=== PATIENT | female | born 1975 | race Caucasian/White ===

== ENCOUNTER 2018-04-23 14:39 | Emergency (ER) | payer SELFPAY ==
[~2018-04-23] VITALS: Ht 157.5 cm; Wt 95.0 kg
[2018-04-23 14:54] VITALS: BP 162/136
--- NOTE | 2018-04-23 15:00 | NUR ---
PT. ARRIVES BY [facility] WITH C/O RIGHT KNEE PAIN. UPON ARRIVAL TO THE ER THE PT. IS SCREAMING AT EMS AND FLIPPING THEM OFF, SCREAMING AT THE ER STAFF AND HER 3 CHILDREN. PT. WILL NOT REMOVE HER JACKET TO OBTAIN A BP. PT. IS ROLLING ALL OVER THE STRETCHER AND UNCOOPERATIVE. RESOLUTION REP-CORNELIUS IS AT THE BEDSIDE. PT. IS SCREAMING AT [facility]. PT. WAS REDIRECTED. MELI MONTGOMERY INSTRUCTED THE PT. TO REMOVE HER JACKET. VITALS OBTAINED. PT.'S 3 CHILDREN STATE SHE "ALWAYS SCREAMS". EMS REPORTED THAT THEY ASKED THE CHILDREN IF THEY FELT SAFE AND THEY STATED YES. CMS CHECKS ARE INTACT TO THE RIGHT KNEE. SIDERAILS ARE UP X [address] WITH THE CALL LIGHT IN PLACE. REPORT GIVEN TO SHELLIE GARRISON.
== END 2018-04-23 16:30 | disposition home or self-care (01) ==
LOC: ED 15:00
DX: S83.91XA Sprain of unspecified site of right knee, initial encounter (principal); E11.9 Type 2 diabetes mellitus without complications; W19.XXXA Unspecified fall, initial encounter; Y93.89 Activity, other specified; Y92.89 Other specified places as the place of occurrence of the external cause; Y99.8 Other external cause status
CPT/HCPCS: 29505; 99283

== ENCOUNTER 2019-03-11 11:56 | Inpatient (IN) | payer OTHER ==
[~2019-03-11] VITALS: Ht 165.1 cm; Wt 86.0 kg
--- NOTE | 2019-03-11 13:08 | NUR ---
BREAK RN: RECEIVED A CALL FROM SPOUSE, HE STATES PATIENT IS TAKING DEPAKOTE, NO KEPRA FOR SEIZURES. HE WILL BE IN SOON TO SEE PATIENT
[2019-03-11] MEDS ORDERED: LORazepam 2 MG/ML, 1ML ONE (13:16)
--- NOTE | 2019-03-11 13:17 | NUR ---
BREAK RN: PT HAD GRANDMAL SEIZURE X 30 SEC. MD NOTIFIED ORDERS RECEIVED. SEIZURE PADS PLACED ON BED.
[2019-03-11] MEDS ORDERED: SODIUM CHLORIDE FLUSH 10ML SYR IVF ONE (13:30)
[2019-03-11] MEDS ORDERED: LORazepam 2 MG/ML, 1ML IVPush ONE (13:30)
[2019-03-11 13:35] LABS: BASOPHILS # (AUTO) 0.02 x10^3/uL (0-0.1); BASOPHILS % (AUTO) 0 % (0-1); EOSINOPHILS # (AUTO) 0.09 x10^3/uL (0-0.4); EOSINOPHILS % (AUTO) 1 % (1-7); LYMPHOCYTES # (AUTO) 2.13 x10^3/uL (1-3.4); LYMPHOCYTES % (AUTO) 26 % (22-44); MD NO; MEAN CORPUSCULAR HEMOGLOBIN 33.1 pg (27.0-34.8); MEAN CORPUSCULAR HGB CONC 33.6 g/dL (32.4-35.8); MEAN CORPUSCULAR VOLUME 98.5 fL (80-100); MONOCYTES % (AUTO) 6 % (2-9); NEUTROPHILS # (AUTO) 5.36 x10^3/uL (1.8-6.8); NEUTROPHILS % (AUTO) 66 % (42-75); PLATELET COUNT 200 x10^3/uL (130-400); RED BLOOD COUNT 4.37 x10^6/uL (3.82-5.3); RED CELL DISTRIBUTION WIDTH 13.5 % (9.6-15.2)
--- NOTE | 2019-03-11 13:48 | NUR ---
ASSUMED CARE OF PATIENT. REPORT GIVEN FROM MELI GOODSON. PT IS AT CT.
--- NOTE | 2019-03-11 13:49 | NUR ---
PT TO CT VIA [employer] MADE AWARE PT HAD SEIZURE AND RECEIVED MED FOR SAME. REPORT TO DAVID GARRISON
--- NOTE | 2019-03-11 14:12 | NUR ---
PT BACK FROM CT AND RESTING IN ROOM. VS STABLE. ASSEMBLER SKYLIGHTS ON. CALL LIGHT IN PLACE. WILL CONTINUE TO MONITOR.
[2019-03-11 14:20] LABS: ALBUMIN 3.6 g/dL (3.4-5.0); ANION GAP 2 mmol/L (5-15); CALCIUM 8.6 mg/dL (8.5-10.1); CHLORIDE 110 mmol/L (98-107); CREATININE 0.81 mg/dL (0.55-1.02)
[2019-03-11] MEDS ORDERED: LIRAGLUTIDE (14:34)
[2019-03-11] MEDS ORDERED: METF500T17 PO (14:34)
[2019-03-11] MEDS ORDERED: KEPPRA (14:35)
[2019-03-11] MEDS ORDERED: SIMVASTATIN PO (14:36)
--- NOTE | 2019-03-11 14:55 | NUR ---
DR JUAREZ HAS UPDATED PATIENT. PATIENT TO BE AN ADMIT.
[2019-03-11] MEDS ORDERED: LEVETIRACETAM 500 MG in SODIUM CHLORIDE 0.9% 100 ML IV ONE (15:00)
--- NOTE | 2019-03-11 15:05 | NUR ---
PT WENT TO CT
[2019-03-11] MEDS ORDERED: KLONOPIN PO (15:19)
[2019-03-11] MEDS ORDERED: LISINOPRIL (15:20)
--- NOTE | 2019-03-11 15:20 | NUR ---
HOSPITALIST IN ROOM
--- NOTE | 2019-03-11 15:21 | NUR ---
PT DOES NOT KNOW THE DOSAGES OF HER MEDICATIONS. PT SAYS SHE DOES TAKE KEPPRA. HOSPITALIST AWARE, DR JUAREZ AWARE.
--- NOTE | 2019-03-11 15:25 | NUR ---
HOSPITALIST IN ROOM
--- NOTE | 2019-03-11 15:45 | NUR ---
REPORT CALLED INTO TELE 2 RN.
[2019-03-11 16:01] VITALS: BP 108/74
[2019-03-11] MEDS ORDERED: KETOROLAC 30 MG/1 ML IV PRN (16:30)
[2019-03-11] MEDS ORDERED: HYDROmorphone 2 MG/ML, 1ML IVPush PRN (16:30)
[2019-03-11] MEDS ORDERED: hydrALAzine 20 MG/ML, 1ML IVPush PRN (16:30)
[2019-03-11] MEDS ORDERED: ASA/APAP/ CAFFEINE TABLET PO PRN (16:30)
[2019-03-11] MEDS ORDERED: CYCLOBENZAPRINE 10 MG TABLET PO PRN (16:30)
[2019-03-11] MEDS ORDERED: BUTALB/APAP/CAFFEINE 50MG/325MG/40MG PO PRN (16:30)
[2019-03-11] MEDS ORDERED: TRAZODONE 50MG TABLET PO PRN (16:30)
[2019-03-11] MEDS ORDERED: GUAIFENESIN/DM 200-20MG, 10ML UDC PO PRN (16:30)
[2019-03-11] MEDS ORDERED: POLYETHYLENE GLYCOL 17 GM PACKET PO PRN (16:30)
[2019-03-11] MEDS ORDERED: CLON0.5T11 PO (16:38)
[2019-03-11] MEDS ORDERED: DIVA250T PO (16:38)
[2019-03-11] MEDS ORDERED: RISP2TAB3 PO (16:38)
[2019-03-11] MEDS ORDERED: SIMV5TAB14 PO (16:38)
[2019-03-11] MEDS ORDERED: LISI5TAB7 PO (16:38)
[2019-03-11] MEDS ORDERED: LIRA0.6P SQ (16:40)
[2019-03-11 19:32] VITALS: BP 102/68
[2019-03-11 20:07] LABS: MICROSCOPIC NOT IND
[2019-03-11] MEDS: SIMVASTATIN 5 MG TABLET PO SCH (20:09)
[2019-03-11 20:11] LABS: CULTURE INDICATED? NO
[2019-03-11] MEDS: DIVALPROEX 250 MG TAB.ER.24H PO SCH (20:11)
[2019-03-11] MEDS ORDERED: metFORMIN 500 MG TABLET PO SCH (21:00)
[2019-03-11 21:03] LABS: AMPHETAMINE SCREEN, URINE Negative (Negative); BARBITURATE SCREEN, URINE Negative (Negative); BENZODIAZEPINE SCREEN, URINE Negative (Negative); CANNABINOID SCREEN, URINE Negative (Negative); COCAINE SCREEN, URINE Negative (Negative); METHADONE SCREEN, URINE Negative (Negative); OPIATE SCREEN, URINE Negative (Negative)
[2019-03-12 01:15] VITALS: BP 107/71
[2019-03-12 05:27] LABS: BASOPHILS # (AUTO) 0.03 x10^3/uL (0-0.1); BASOPHILS % (AUTO) 0 % (0-1); EOSINOPHILS # (AUTO) 0.09 x10^3/uL (0-0.4); EOSINOPHILS % (AUTO) 1 % (1-7); LYMPHOCYTES # (AUTO) 2.56 x10^3/uL (1-3.4); LYMPHOCYTES % (AUTO) 32 % (22-44); MD NO; MEAN CORPUSCULAR HEMOGLOBIN 32.7 pg (27.0-34.8); MEAN CORPUSCULAR HGB CONC 33.3 g/dL (32.4-35.8); MEAN PLATELET VOLUME 8.4 fL (7.4-10.4); MONOCYTES # (AUTO) 0.68 x10^3/uL (0.2-0.8); MONOCYTES % (AUTO) 8 % (2-9); NEUTROPHILS # (AUTO) 4.71 x10^3/uL (1.8-6.8); NEUTROPHILS % (AUTO) 58 % (42-75); PLATELET COUNT 198 x10^3/uL (130-400); RED BLOOD COUNT 4.23 x10^6/uL (3.82-5.3); RED CELL DISTRIBUTION WIDTH 13.2 % (9.6-15.2)
[2019-03-12 05:33] LABS: ANION GAP 6 mmol/L (5-15); CALCIUM 8.6 mg/dL (8.5-10.1); CHLORIDE 107 mmol/L (98-107); CREATININE 0.77 mg/dL (0.55-1.02)
[2019-03-12 07:29] VITALS: BP 110/69
[2019-03-12] MEDS: DIVALPROEX 250 MG TAB.ER.24H PO SCH ×2 (09:00→21:00)
[2019-03-12] MEDS: RISPERIDONE 2 MG TABLET PO SCH (09:09)
[2019-03-12] MEDS: LISINOPRIL 5 MG TABLET PO SCH (09:09)
[2019-03-12] MEDS: INSULIN LISPRO 100 UNITS/ML, PEN SQ-INSULIN SCH ×3 (12:41→21:44)
[2019-03-12 15:05] VITALS: BP 94/58
[2019-03-12] MEDS ORDERED: GADOTERATE 10 MMOL/20 ML SYR ONE (17:49)
[2019-03-12 19:54] VITALS: BP 105/71
[2019-03-12] MEDS: SIMVASTATIN 5 MG TABLET PO SCH (21:44)
[2019-03-13 00:48] VITALS: BP 106/65
[2019-03-13 08:03] VITALS: BP 96/70
[2019-03-13] MEDS: INSULIN LISPRO 100 UNITS/ML, PEN SQ-INSULIN SCH ×4 (08:27→20:33)
[2019-03-13 09:30] VITALS: BP 102/69
[2019-03-13] MEDS: RISPERIDONE 2 MG TABLET PO SCH (09:32)
[2019-03-13] MEDS: LISINOPRIL 5 MG TABLET PO SCH (09:32)
[2019-03-13] MEDS: DIAZEPAM 5 MG TABLET PO SCH ×3 (11:09→20:33)
[2019-03-13] MEDS: DIVALPROEX 250 MG TAB.ER.24H PO SCH ×2 (11:09→20:33)
[2019-03-13 12:36] VITALS: BP 116/79
[2019-03-13 18:54] VITALS: BP 106/71
[2019-03-13] MEDS: SIMVASTATIN 5 MG TABLET PO SCH (20:33)
[2019-03-14 01:30] VITALS: BP 103/67
[2019-03-14] MEDS: INSULIN LISPRO 100 UNITS/ML, PEN SQ-INSULIN SCH ×2 (07:00→12:11)
[2019-03-14 07:58] VITALS: BP 115/79
[2019-03-14] MEDS: RISPERIDONE 2 MG TABLET PO SCH (09:45)
[2019-03-14] MEDS: DIVALPROEX 250 MG TAB.ER.24H PO SCH ×2 (09:45→20:41)
[2019-03-14] MEDS: LISINOPRIL 5 MG TABLET PO SCH (09:45)
[2019-03-14] MEDS: DIAZEPAM 5 MG TABLET PO SCH ×3 (09:45→20:41)
[2019-03-14 13:07] VITALS: BP 108/70
[2019-03-14] MEDS: SIMVASTATIN 5 MG TABLET PO SCH (20:41)
[2019-03-14 20:45] VITALS: BP 96/61
[2019-03-15 01:07] VITALS: BP 99/63
[2019-03-15 07:45] VITALS: BP 123/82
[2019-03-15] MEDS: LISINOPRIL 5 MG TABLET PO SCH (10:32)
[2019-03-15] MEDS: DIAZEPAM 5 MG TABLET PO SCH ×3 (10:32→20:26)
[2019-03-15] MEDS: RISPERIDONE 2 MG TABLET PO SCH (10:33)
[2019-03-15] MEDS: DIVALPROEX 250 MG TAB.ER.24H PO SCH ×2 (10:34→20:26)
[2019-03-15 13:13] VITALS: BP 115/73
[2019-03-15 20:12] VITALS: BP 96/62
[2019-03-15] MEDS: SIMVASTATIN 5 MG TABLET PO SCH (20:26)
[2019-03-16 01:48] VITALS: BP 91/57
[2019-03-16 06:58] VITALS: BP 97/64
[2019-03-16] MEDS: DIAZEPAM 5 MG TABLET PO SCH ×3 (09:01→20:04)
[2019-03-16] MEDS: ENOXAPARIN 40 MG/0.4 ML SQ SCH (09:01)
[2019-03-16] MEDS: RISPERIDONE 2 MG TABLET PO SCH (09:01)
[2019-03-16] MEDS: DIVALPROEX 250 MG TAB.ER.24H PO SCH ×2 (09:01→20:04)
[2019-03-16 13:45] VITALS: BP 107/71
[2019-03-16] MEDS: SIMVASTATIN 5 MG TABLET PO SCH (20:04)
[2019-03-16 20:41] VITALS: BP 117/76
[2019-03-16 22:26] VITALS: BP 98/66
[2019-03-17 01:11] VITALS: BP 105/64
[2019-03-17 06:41] VITALS: BP 110/70
[2019-03-17] MEDS: DIVALPROEX 250 MG TAB.ER.24H PO SCH ×2 (09:31→20:05)
[2019-03-17] MEDS: ENOXAPARIN 40 MG/0.4 ML SQ SCH (09:31)
[2019-03-17] MEDS: RISPERIDONE 2 MG TABLET PO SCH (09:32)
[2019-03-17] MEDS: DIAZEPAM 5 MG TABLET PO SCH ×3 (09:38→20:04)
[2019-03-17 13:18] VITALS: BP 120/79
[2019-03-17 18:57] VITALS: BP 117/72
[2019-03-17] MEDS: SIMVASTATIN 5 MG TABLET PO SCH (20:04)
[2019-03-17 20:11] VITALS: BP 133/89
[2019-03-18 01:06] VITALS: BP 102/65
[2019-03-18] MEDS: ACETAMINOPHEN 325 MG TABLET PO PRN (01:55)
[2019-03-18 05:51] LABS: CREATININE 0.81 mg/dL (0.55-1.02)
[2019-03-18 06:52] VITALS: BP 107/66
[2019-03-18] MEDS: DIVALPROEX 250 MG TAB.ER.24H PO SCH ×2 (09:36→19:36)
[2019-03-18] MEDS: DIAZEPAM 5 MG TABLET PO SCH ×3 (09:36→19:37)
[2019-03-18] MEDS: ENOXAPARIN 40 MG/0.4 ML SQ SCH (09:36)
[2019-03-18] MEDS: RISPERIDONE 2 MG TABLET PO SCH (09:36)
[2019-03-18 12:42] VITALS: BP 125/82
[2019-03-18] MEDS: SIMVASTATIN 5 MG TABLET PO SCH (19:36)
[2019-03-18 19:46] VITALS: BP 119/77
[2019-03-19] VITALS (7 sets, daily range): BP systolic 91–139; BP diastolic 61–89
[2019-03-19 05:01] LABS: BASOPHILS # (AUTO) 0.03 x10^3/uL (0-0.1); BASOPHILS % (AUTO) 0 % (0-1); EOSINOPHILS # (AUTO) 0.17 x10^3/uL (0-0.4); EOSINOPHILS % (AUTO) 3 % (1-7); LYMPHOCYTES # (AUTO) 2.45 x10^3/uL (1-3.4); LYMPHOCYTES % (AUTO) 36 % (22-44); MD NO; MEAN CORPUSCULAR HEMOGLOBIN 32.7 pg (27.0-34.8); MEAN CORPUSCULAR HGB CONC 33.7 g/dL (32.4-35.8); MEAN PLATELET VOLUME 8.1 fL (7.4-10.4); MONOCYTES # (AUTO) 0.51 x10^3/uL (0.2-0.8); MONOCYTES % (AUTO) 8 % (2-9); NEUTROPHILS % (AUTO) 53 % (42-75); PLATELET COUNT 162 x10^3/uL (130-400); RED BLOOD COUNT 4.18 x10^6/uL (3.82-5.3); RED CELL DISTRIBUTION WIDTH 13.3 % (9.6-15.2)
[2019-03-19 05:09] LABS: ANION GAP 7 mmol/L (5-15); CALCIUM 8.7 mg/dL (8.5-10.1); CHLORIDE 105 mmol/L (98-107); CREATININE 0.94 mg/dL (0.55-1.02)
[2019-03-19] MEDS: DIAZEPAM 5 MG TABLET PO SCH ×3 (09:25→20:24)
[2019-03-19] MEDS: DIVALPROEX 250 MG TAB.ER.24H PO SCH ×2 (09:25→20:24)
[2019-03-19] MEDS: RISPERIDONE 2 MG TABLET PO SCH (09:25)
[2019-03-19] MEDS: ENOXAPARIN 40 MG/0.4 ML SQ SCH (09:29)
[2019-03-19] MEDS: SODIUM CHLORIDE 0.9% 1,000 ML IV SCH ×2 (12:30→22:12)
[2019-03-19 12:55] LABS: HCT (SEDRATE) 43.7 % (34.6-47.8)
[2019-03-19 13:18] LABS: ALANINE AMINOTRANSFERASE 19 U/L (12-78); ALBUMIN 3.5 g/dL (3.4-5.0); ALKALINE PHOSPHATASE 89 U/L (45-117); BILIRUBIN,TOTAL 0.3 mg/dL (0.2-1.0); C-REACTIVE PROTEIN, QUANT 0.04 mg/dL (0.02-0.49); CREATINE KINASE, TOTAL 48 U/L (26-192); TOTAL PROTEIN 7.5 g/dL (6.4-8.2)
[2019-03-19 13:35] LABS: BILIRUBIN, DIRECT < 0.1 mg/dL (0.1-0.2); BILIRUBIN,INDIRECT 0.2 mg/dL (0.0-2.0)
[2019-03-19] MEDS ORDERED: GLUCAGON 1 MG IM PRN (16:00)
[2019-03-19] MEDS ORDERED: DEXTROSE 4 GM TAB.CHEW PO PRN (16:00)
[2019-03-19] MEDS ORDERED: DEXTROSE 50%, 50ML SYRINGE IVPush PRN (16:00)
[2019-03-19] MEDS ORDERED: metFORMIN 500 MG TABLET PO SCH (17:00)
[2019-03-19] MEDS: INSULIN LISPRO 100 UNITS/ML, PEN SQ-INSULIN SCH ×2 (17:04→20:25)
[2019-03-19] MEDS: SIMVASTATIN 5 MG TABLET PO SCH (20:24)
[2019-03-19] MEDS: SODIUM CHLORIDE FLUSH 10ML SYR IVF SCH (20:25)
[2019-03-20 01:19] VITALS: BP 110/71
[2019-03-20] MEDS: SODIUM CHLORIDE 0.9% 1,000 ML IV SCH (05:39)
[2019-03-20] MEDS: INSULIN LISPRO 100 UNITS/ML, PEN SQ-INSULIN SCH ×4 (07:00→21:29)
[2019-03-20 07:10] VITALS: BP 93/59
[2019-03-20] MEDS: DIVALPROEX 250 MG TAB.ER.24H PO SCH ×2 (08:39→21:27)
[2019-03-20] MEDS: metFORMIN 500 MG TABLET PO SCH ×2 (08:39→17:17)
[2019-03-20] MEDS: RISPERIDONE 2 MG TABLET PO SCH (08:40)
[2019-03-20] MEDS: ENOXAPARIN 40 MG/0.4 ML SQ SCH (08:40)
[2019-03-20] MEDS: DIAZEPAM 5 MG TABLET PO SCH ×3 (08:40→21:28)
[2019-03-20] MEDS: SODIUM CHLORIDE FLUSH 10ML SYR IVF SCH ×2 (08:40→21:28)
[2019-03-20 13:03] VITALS: BP 103/71
[2019-03-20 20:55] VITALS: BP 112/72
[2019-03-20] MEDS: SIMVASTATIN 5 MG TABLET PO SCH (21:28)
[2019-03-21 00:24] VITALS: BP 122/82
[2019-03-21] MEDS: INSULIN LISPRO 100 UNITS/ML, PEN SQ-INSULIN SCH ×4 (07:00→19:56)
[2019-03-21] MEDS ORDERED: SODIUM CHLORIDE 0.9% 1,000 ML IV SCH (07:33)
[2019-03-21 07:35] VITALS: BP 164/76
[2019-03-21] MEDS ORDERED: CEFAZOLIN PMX 1GM/50ML 50 ML IVPB ONE (08:00)
[2019-03-21] MEDS: metFORMIN 500 MG TABLET PO SCH ×2 (08:00→17:51)
[2019-03-21] MEDS: DIVALPROEX 250 MG TAB.ER.24H PO SCH ×2 (09:00→19:55)
[2019-03-21] MEDS: RISPERIDONE 2 MG TABLET PO SCH (09:00)
[2019-03-21] MEDS: SODIUM CHLORIDE FLUSH 10ML SYR IVF SCH ×2 (09:00→19:56)
[2019-03-21] MEDS: DIAZEPAM 5 MG TABLET PO SCH ×3 (09:00→19:55)
[2019-03-21] MEDS: ENOXAPARIN 40 MG/0.4 ML SQ SCH (09:00)
[2019-03-21 14:05] VITALS: BP 126/87
[2019-03-21] MEDS ORDERED: MAGNESIUM SULFATE PMX 2GM/50ML 50 ML IV ONE (18:00)
[2019-03-21] MEDS: SIMVASTATIN 5 MG TABLET PO SCH (19:55)
[2019-03-21] MEDS: ASCORBIC ACID 500 MG TABLET PO SCH (19:55)
[2019-03-21] MEDS: CHOLECALCIFEROL 5,000u TAB PO SCH (19:55)
[2019-03-21 20:21] VITALS: BP 112/75
[2019-03-22 01:15] VITALS: BP 115/78
[2019-03-22 06:27] LABS: BASOPHILS # (AUTO) 0.02 x10^3/uL (0-0.1); BASOPHILS % (AUTO) 0 % (0-1); EOSINOPHILS # (AUTO) 0.16 x10^3/uL (0-0.4); EOSINOPHILS % (AUTO) 2 % (1-7); LYMPHOCYTES # (AUTO) 1.94 x10^3/uL (1-3.4); LYMPHOCYTES % (AUTO) 27 % (22-44); MD NO; MEAN CORPUSCULAR HEMOGLOBIN 32.7 pg (27.0-34.8); MEAN CORPUSCULAR HGB CONC 33.6 g/dL (32.4-35.8); MEAN CORPUSCULAR VOLUME 97.5 fL (80-100); MEAN PLATELET VOLUME 7.9 fL (7.4-10.4); MONOCYTES # (AUTO) 0.61 x10^3/uL (0.2-0.8); MONOCYTES % (AUTO) 8 % (2-9); NEUTROPHILS # (AUTO) 4.51 x10^3/uL (1.8-6.8); NEUTROPHILS % (AUTO) 62 % (42-75); PLATELET COUNT 173 x10^3/uL (130-400); RED BLOOD COUNT 4.26 x10^6/uL (3.82-5.3); RED CELL DISTRIBUTION WIDTH 12.9 % (9.6-15.2)
[2019-03-22 06:39] LABS: ALBUMIN 3.4 g/dL (3.4-5.0); ANION GAP 10 mmol/L (5-15); CALCIUM 8.7 mg/dL (8.5-10.1); CHLORIDE 102 mmol/L (98-107)
[2019-03-22] MEDS: INSULIN LISPRO 100 UNITS/ML, PEN SQ-INSULIN SCH ×4 (07:00→20:38)
[2019-03-22] MEDS: metFORMIN 500 MG TABLET PO SCH ×2 (08:00→16:45)
[2019-03-22] MEDS: ASCORBIC ACID 500 MG TABLET PO SCH ×2 (08:00→16:45)
[2019-03-22 08:02] VITALS: BP 112/75
[2019-03-22] MEDS: SODIUM CHLORIDE FLUSH 10ML SYR IVF SCH ×2 (09:00→20:37)
[2019-03-22] MEDS: RISPERIDONE 2 MG TABLET PO SCH (09:00)
[2019-03-22] MEDS: DIAZEPAM 5 MG TABLET PO SCH ×3 (09:00→20:38)
[2019-03-22] MEDS: DIVALPROEX 250 MG TAB.ER.24H PO SCH ×2 (09:00→20:37)
[2019-03-22] MEDS: MULTIVITS,STRESS FORMULA 1 TABLET PO SCH (09:00)
[2019-03-22] MEDS: CHOLECALCIFEROL 5,000u TAB PO SCH (09:00)
[2019-03-22] MEDS ORDERED: LIDOCAINE 2%, 20ML ONE ×2 (10:02→10:52)
[2019-03-22] MEDS ORDERED: MIDAZOLAM 1 MG/ML, 5ML ONE (10:02)
[2019-03-22] MEDS ORDERED: CEFAZOLIN 1,000 MG ONE (10:02)
[2019-03-22] MEDS ORDERED: FENTANYL PF 100 MCG/2ML ONE (10:02)
[2019-03-22] MEDS ORDERED: CEFAZOLIN PMX 1GM/50ML 50 ML ONE (10:02)
[2019-03-22] MEDS ORDERED: DIPHENHYDRAMINE 50 MG/ML, 1ML ONE (10:52)
[2019-03-22] MEDS ORDERED: Hold all anticoagulants for 24 hours MC PRN (11:30)
[2019-03-22 11:50] VITALS: BP 110/74
[2019-03-22] MEDS: ACETAMINOPHEN 325 MG TABLET PO PRN ×2 (12:12→14:19)
[2019-03-22 14:17] VITALS: BP 118/81
[2019-03-22] MEDS: CEFAZOLIN PMX 1GM/50ML 50 ML IVPB SCH (18:41)
[2019-03-22 19:29] VITALS: BP 105/55
[2019-03-22] MEDS: HYDROcodone/APAP 5/325 TABLET PO PRN (19:34)
[2019-03-22 20:28] VITALS: BP 115/75
[2019-03-22] MEDS: SIMVASTATIN 5 MG TABLET PO SCH (20:38)
[2019-03-23 00:43] VITALS: BP 113/71
[2019-03-23] MEDS: CEFAZOLIN PMX 1GM/50ML 50 ML IVPB SCH ×2 (01:55→10:09)
[2019-03-23] MEDS: INSULIN LISPRO 100 UNITS/ML, PEN SQ-INSULIN SCH ×4 (07:00→21:00)
[2019-03-23 08:00] VITALS: BP 115/75
[2019-03-23] MEDS: ASCORBIC ACID 500 MG TABLET PO SCH ×2 (08:00→17:48)
[2019-03-23] MEDS: DIVALPROEX 250 MG TAB.ER.24H PO SCH ×2 (08:33→20:58)
[2019-03-23] MEDS: HYDROcodone/APAP 5/325 TABLET PO PRN (08:34)
[2019-03-23] MEDS: DIAZEPAM 5 MG TABLET PO SCH ×3 (08:34→20:59)
[2019-03-23] MEDS: metFORMIN 500 MG TABLET PO SCH ×2 (08:34→17:48)
[2019-03-23] MEDS: RISPERIDONE 2 MG TABLET PO SCH (08:34)
[2019-03-23] MEDS: SODIUM CHLORIDE FLUSH 10ML SYR IVF SCH ×2 (08:35→20:59)
[2019-03-23] MEDS: MULTIVITS,STRESS FORMULA 1 TABLET PO SCH (08:35)
[2019-03-23] MEDS: CHOLECALCIFEROL 5,000u TAB PO SCH (08:35)
[2019-03-23 14:00] VITALS: BP 115/74
[2019-03-23] MEDS: SIMVASTATIN 5 MG TABLET PO SCH (20:58)
[2019-03-23 21:03] VITALS: BP 124/84
[2019-03-24 03:32] VITALS: BP 131/84
[2019-03-24] MEDS: INSULIN LISPRO 100 UNITS/ML, PEN SQ-INSULIN SCH ×4 (07:00→20:42)
[2019-03-24] MEDS: DIVALPROEX 250 MG TAB.ER.24H PO SCH ×2 (08:39→20:07)
[2019-03-24] MEDS: MULTIVITS,STRESS FORMULA 1 TABLET PO SCH (08:39)
[2019-03-24] MEDS: metFORMIN 500 MG TABLET PO SCH ×2 (08:40→17:23)
[2019-03-24] MEDS: RISPERIDONE 2 MG TABLET PO SCH (08:40)
[2019-03-24] MEDS: ASCORBIC ACID 500 MG TABLET PO SCH ×2 (08:40→17:23)
[2019-03-24] MEDS: DIAZEPAM 5 MG TABLET PO SCH ×3 (08:43→20:07)
[2019-03-24] MEDS: SODIUM CHLORIDE FLUSH 10ML SYR IVF SCH ×2 (09:00→20:08)
[2019-03-24] MEDS: CHOLECALCIFEROL 5,000u TAB PO SCH (11:57)
[2019-03-24 13:28] VITALS: BP 117/79
[2019-03-24 19:28] VITALS: BP 116/76
[2019-03-24] MEDS: SIMVASTATIN 5 MG TABLET PO SCH (20:07)
[2019-03-24] MEDS: HYDROcodone/APAP 5/325 TABLET PO PRN (23:13)
[2019-03-25 01:10] VITALS: BP 125/80
[2019-03-25] MEDS: INSULIN LISPRO 100 UNITS/ML, PEN SQ-INSULIN SCH ×2 (07:00→11:59)
[2019-03-25 07:33] VITALS: BP 108/72
[2019-03-25] MEDS: metFORMIN 500 MG TABLET PO SCH (08:26)
[2019-03-25] MEDS: ASCORBIC ACID 500 MG TABLET PO SCH (08:26)
[2019-03-25] MEDS: CHOLECALCIFEROL 5,000u TAB PO SCH (08:26)
[2019-03-25] MEDS: RISPERIDONE 2 MG TABLET PO SCH (08:26)
[2019-03-25] MEDS: MULTIVITS,STRESS FORMULA 1 TABLET PO SCH (08:26)
[2019-03-25] MEDS: DIAZEPAM 5 MG TABLET PO SCH (08:26)
[2019-03-25] MEDS: DIVALPROEX 250 MG TAB.ER.24H PO SCH (08:26)
[2019-03-25] MEDS: SODIUM CHLORIDE FLUSH 10ML SYR IVF SCH (08:36)
[2019-03-25] MEDS ORDERED: DIAZ5TAB4 PO (12:02)
== END 2019-03-25 14:18 | disposition home or self-care (01) | DRG 101 ==
LOC: ED 14:56 → 4WST 14:57 → ED 15:02 → 4WST 15:54 → ED 15:54 → 4WST 17:56 → 5SO 03-14 05:03 → 4WST 03-16 22:15 → 4EST 03-20 17:47 → 5SO 03-22 11:42 → DCLOUNGE 03-25 14:04
PROVIDERS: ADMIT Family Medicine; ATTEND Family Medicine
DX: G40.909 Epilepsy, unspecified, not intractable, without status epilepticus (principal); S02.31XA Fracture of orbital floor, right side, initial encounter for closed fracture; E11.9 Type 2 diabetes mellitus without complications; E66.9 Obesity, unspecified; Z68.31 Body mass index [BMI] 31.0-31.9, adult; E78.5 Hyperlipidemia, unspecified; G25.5 Other chorea; G47.30 Sleep apnea, unspecified; I10 Essential (primary) hypertension; R29.6 Repeated falls; S00.03XA Contusion of scalp, initial encounter; T50.905A Adverse effect of unspecified drugs, medicaments and biological substances, initial encounter; W18.39XA Other fall on same level, initial encounter; Y93.89 Activity, other specified; Y92.89 Other specified places as the place of occurrence of the external cause; Y99.8 Other external cause status; Z87.891 Personal history of nicotine dependence; Z95.0 Presence of cardiac pacemaker; S00.81XA Abrasion of other part of head, initial encounter; Z79.899 Other long term (current) drug therapy; Z79.84 Long term (current) use of oral hypoglycemic drugs
CPT/HCPCS: 33208; 36415; 85610; 85613; 85670; 85730; 86038; 86146; 86147; 99285; J3490; 70450; 70486; 70553; 71045; 72125; 80048; 80069; 80076; 80164; 80307; 81003; 82040; 82306; 82533; 82550; 82565; 82607; 82962; 83036; 83516; 83735; 84100; 84443; 84703; 85025; 85598; 85651; 86140; 86160; 86225; 86235; 86255; 86376; 93005; 93306; 95816; 99156; 99157; C1779; C1785; C1892; G0378; J0690; J1650; J1953; J2250; J3010; 92523-GN; A9575; J1200; J1815; J2060; J3475; J7030